=== PATIENT | female | born 1980 | race African-American/Black ===

== ENCOUNTER 2018-12-24 07:17 | Day surgery (SDC) | payer OTHER ==
[2018-12-22 17:41] VITALS: BMI 16.9
--- NOTE | 2018-12-24 07:52 | HP ---
History & Physical Update - History History: No Change - Physical Physical: No Change - Assessment Assessment: No Change - Plan Plan: No Change
[2018-12-24] MEDS ORDERED: fentaNYL CITRATE 250 MCG/5 ML VIAL ONE (08:17)
[2018-12-24] MEDS ORDERED: ROCURONIUM BROMIDE 50 MG/5 ML SYRINGE ONE (08:17)
[2018-12-24] MEDS ORDERED: SUCCINYLCHOLINE CHLORIDE 200 MG/10 ML SYRINGE ONE (08:17)
[2018-12-24] MEDS ORDERED: MIDAZOLAM HCL 2 MG/2 ML SINGLE DOSE VIAL ONE (08:17)
[2018-12-24] MEDS ORDERED: BUPIVACAINE HCL/PF 0.5% (5 MG/ML) 30 ML VIAL IJ ONE ×3 (08:42→10:02)
[2018-12-24] MEDS ORDERED: PROPOFOL 20 ML ONE (08:56)
[2018-12-24] MEDS ORDERED: ceFAZolin SODIUM 1 GM VIAL IVPB ONE (09:10)
[2018-12-24] MEDS ORDERED: NEOSTIGMINE METHYLSULFATE 0.5 MG/ML - 10 ML MDV ONE (09:59)
[2018-12-24] MEDS ORDERED: ceFAZolin SODIUM 1 GM VIAL ONE (10:06)
[2018-12-24] MEDS ORDERED: GLYCOPYRROLATE 0.2 MG/1 ML VIAL ONE (10:06)
[2018-12-24] MEDS ORDERED: DEXAMETHASONE SOD PHOSPHATE 4 MG/1 ML VIAL ONE (10:06)
--- NOTE | 2018-12-24 10:41 | OP ---
<Bonnie Rodarte - Last Filed: 12/24/18 10:39> Operative Note - Note: Operative Date: 12/24/18 Pre-Operative Diagnosis: left ovarian cyst Operation: laparoscopic bilateral(right and left) cyectomy with lysis of adhesion Surgeon: Marisol Gomez Dividing Machine Operator Helper: Bonnie Rodarte Anesthesiologist/FLIGHT AGENT: Anderson Son Anesthesia: General Estimated Blood Loss (mls): 10 Fluid Volume Replaced (mls): 1,000 Operative Report Dictated: Yes <Marisol Gomez - Last Filed: 12/24/18 11:42> Operative Note - Note: Operation: Laparoscopic left cystomies Specimens Removed: right ovarian cyst. left ovarian cyst
--- NOTE | 2018-12-24 10:42 | SURG ---
Surgery [facility] Note [facility]: Bonnie Rodarte PA-C Date of Service: 12/24/18 Diagnosis: left ovarian cyst Procedure: laparscopic bilateral ovarian cystectomy with Lysis of adhesion I was present for the entirety of the operative procedure. For further detail, please refer to operative report. Visit type - Case Type Case Type: Scheduled - Emergency Emergency Visit: No - New patient This patient is new to me today: Yes Date on this admission: 12/24/18 - Critical Care Critical Care patient: No
[2018-12-24] MEDS ORDERED: oxyCODONE HCL 5 MG TABLET PO PRN ×2 (10:46)
[2018-12-24] MEDS ORDERED: ONDANSETRON 4 MG/2 ML VIAL IVPUSH PRN (10:46)
[2018-12-24] MEDS ORDERED: LACTATED RINGERS SOLUTION 1,000 ML IV SCH (11:00)
[2018-12-24 11:55] VITALS: PULSE 92; TEMP 98
--- NOTE | 2018-12-24 13:02 | OP ---
DATE OF OPERATION: 12/24/2018 PREOPERATIVE DIAGNOSIS: Left ovarian cyst. OPERATION: Laparoscopic bilateral cystectomy with lysis of adhesions, left ovarian cystotomy. POSTOPERATIVE DIAGNOSES: Left ovarian cyst and right ovarian cyst. SURGEON: Mauri Carmona MD DEAN OF GRADUATE STUDIES: SUPRIYA Franco ANESTHESIA: General. ANESTHESIOLOGIST: Anderson Son MD ESTIMATED BLOOD LOSS: 10 mL. PROCEDURE: Patient was taken to the operating room, placed in dorsal lithotomy position, prepped and draped in the usual sterile fashion. Timeout was performed in accordance with hospital regulation. Carr catheter was inserted into the bladder. After timeout had been performed, a 5-mm umbilical incision was made. Veress needle was inserted into the cavity. Approximately 3-4 L of CO2 was insufflated. Veress needle was then removed, and a 5-mm trocar was then inserted. Laparoscope and camera revealed a multi-cystic left ovary with adhesions. Also, on the right, a right ovarian cyst and normal tube on both the right and left side. Two trocars were placed in the right and left lower abdomen after 5-mm incision had been placed. Trocars were inserted under direct visualization. Grasper was then used to grasp the right ovary, and the LigaSure was then used to remove the right ovarian cyst, approximately 2 cm in size. Attention was then drawn to the left ovary where a left ovarian cystectomy was then performed, and lysis of adhesions was performed on the left side. Multiple cysts were noted on the left ovary. Cystotomies were then performed on the left ovary. After sufficient cystotomies had been performed, and the left ovary appeared to be more normal, irrigation was then done. Hemostasis was achieved. All instruments were then removed. Incisions were then closed using 4-0 Biosyn suture in subcuticular fashion. Wound was washed and dressed. Patient tolerated the procedure well. Carr catheter was removed, and then, patient was taken to recovery room in stable condition. MAURI CARMONA M.D. MARIA [id number]
[2018-12-24 16:09] VITALS: BP 118/82
--- NOTE | 2018-12-28 14:16 | PATH ---
Surgical Pathology Report Patient Name: KODY FLETCHER [facility]. Rec. #: [id number] /Age/Gender: 1980 (Age: 38) / F Account: [id number] Location: [facility] SURGICAL Taken: 12/24/2018 Received: 12/24/2018 Reported: 12/28/2018 Physicians: Marisol Gomez M.D. Specimen(s) Received A: RIGHT OVARIAN CYST B: LEFT OVARIAN CYST Clinical History Ovarian cyst Final Diagnosis A. OVARIAN CYST, RIGHT, CYSTECTOMY: CYSTIC FOLLICLES, FRAGMENTS. B. OVARIAN CYST, LEFT, CYSTECTOMY: OVARY WITH SEROMUCINOUS CYSTADENOMA. ENDOMETRIOSIS. Comment: Part B, immunohistochemical stains performed at [place], [place] ([id number]) and interpreted at [facility] show CD10 highlights endometrial stroma, supportive of the above diagnosis. Positive and negative controls (internal if applicable) show appropriate results. Electronically Signed Gay Feng M.D. Gross Description A. Received in formalin labeled "right ovarian cyst" is a fragment of pink-clark soft tissue measuring 1 x 0.5 x 0.5 cm. The specimen is bisected and entirely submitted one cassette. B. Received in formalin labeled "left ovarian cyst" is a fragment of white to pink-clark fibromembranous soft tissue which measures 1.5 x 1.2 x 0.7 cm. The specimen is serially sectioned and entirely submitted in one cassette. MLSZ/12/24/2018 sanml/12/24/2018
== END 2018-12-24 14:20 | disposition home or self-care (01) ==
LOC: JASU-SURG 07:17 → EDSTATUS 09:30 → JASU-SURG 14:20
PROVIDERS: ATTEND Obstetrics & Gynecology
PROC: 0UN14ZZ Release Left Ovary, Percutaneous Endoscopic Approach (ICD-10-PCS; 2018-12-24)
PROC: 0UB24ZZ Excision of Bilateral Ovaries, Percutaneous Endoscopic Approach (ICD-10-PCS; principal; 2018-12-24 08:30)
DX: N83.202 Unspecified ovarian cyst, left side (principal); N83.201 Unspecified ovarian cyst, right side; N73.6 Female pelvic peritoneal adhesions (postinfective)
CPT/HCPCS: 36415; 84703; 86850; 86900; 86901; 88305-TC; 88307-TC; 94760